=== PATIENT | female | born 1980 | race Caucasian/White ===

== ENCOUNTER → 2020-10-24 17:00 | Outpatient (CLI) | payer BC, SELFPAY ==
[2020-10-13 08:23] VITALS: BMI 41.9
--- NOTE | 2020-10-24 17:02 | US_ITS ---
STUDY: SUPERFICIAL ULTRASOUND - RIGHT THIGH REASON FOR EXAM: Female, 40 years old. mass, lipoma -- right distal femur mass TECHNIQUE: A superficial ultrasound was performed with real-time and static flores-scale imaging. COMPARISON: None. FINDINGS: Multiple longitudinal and transverse ultrasound images of the right thigh demonstrate a 2.7 x 5.1 cm oval isoechoic area within the subcutaneous fat which may represent a lipoma. Correlation with MRI with contrast would be useful. US/Ext Non Vasc Limited/Soft Tiss IMPRESSION: Possible lipoma of the distal right thigh and correlation with MRI with contrast may be useful. Electronically Signed: Sang Gomez MD at 9:20 EDT Tel , Service support ,
== END ==
PROVIDERS: Referring Provider Orthopaedic Surgery; Visit Provider Orthopaedic Surgery
DX: D17.23 Benign lipomatous neoplasm of skin and subcutaneous tissue of right leg (principal)
CPT/HCPCS: 76882

== ENCOUNTER → 2020-11-09 16:53 | Outpatient (CLI) | payer BC, SELFPAY ==
[2020-10-13 08:23] VITALS: BMI 41.9
--- NOTE | 2020-11-09 16:53 | MRI_ITS ---
STUDY: MRI LOWER EXTREMITY RIGHT THIGH WITH AND WITHOUT CONTRAST REASON FOR EXAM: Soft tissue mass of the right posterior distal thigh, lipoma. TECHNIQUE: Standardized fat and water weighted pulse sequences were obtained in all 3 orthogonal planes, post contrast administration. IV DOTAREM 20CC was administered for the contrast portion of the examination. COMPARISON: Ultrasound images 10/24/2020, radiographs of the right knee 10/13/2020. FINDINGS: There is a superficial nonencapsulated lipoma at the posterior lateral aspect of the distal thigh corresponding to the skin marker (T1 axial images 16-18; T1 sagittal image 6). There is no contrast enhancing soft tissue mass. Normal visualized quadriceps, adductor and hamstring muscles. Normal visualized quadriceps extensor mechanism with a normal rectus femoris, vastus medialis, intermedius and lateralis muscles. Normal visualized femur. MRI/Lower Ext No Joint W/WO Cont IMPRESSION: Superficial nonencapsulated lipoma at the posterior lateral aspect of the distal thigh. Electronically Signed: Yasir Padegtt MD at 7:54 EDT Tel , Service support ,
== END ==
PROVIDERS: Referring Provider Orthopaedic Surgery; Visit Provider Orthopaedic Surgery
DX: R22.41 Localized swelling, mass and lump, right lower limb (principal)
CPT/HCPCS: 73720; A9575

== ENCOUNTER → 2021-01-06 11:16 | Outpatient (CLI) | payer BC, SELFPAY ==
[2021-01-06 08:38] VITALS: BMI 41.9
--- NOTE | 2021-01-06 08:40 | LIP_PTH ---
PATIENT: RADHA MENDEZ LOC: [facility] U#:[id number] AGE/SX: 44/F ROOM: RE01/06/[address]: Dr. Mechelle Dobbins MD : 1980 BED: DIS: SPEC #: [id number] RECD: 01/06/21 10:57 STATUS: TAD REGuillermina #: [id number] LAUREN: 01/06/21 08:[address]: Mechelle Dobbins DEPT: SURGICAL PATHOLOGY RECD BY: Debra Hou ENTERED: 01/06/21 12:54 SP TYPE: LIPOMA OTHR DR: No Primary Care Phys Tissues: Soft tissues, NOS Procedures: Surgery Specimen Level III HEADER OPERATION: Excision of right knee lipoma posterior PRE-OP DIAGNOSIS: Right knee lipoma posterior TISSUE SUBMITTED: Right knee lipoma posterior MICROSCOPIC DIAGNOSIS Right knee lipoma posterior, excisional biopsy: Mature adipose tissue, consistent with lipoma. SJ:jazmine 01/09/2021 MICROSCOPIC DESCRIPTION Slides are reviewed. GROSS DESCRIPTION Received is one container labeled with the patient's name and not further designated. The specimen consists of a partly disrupted piece of yellow adipose tissue measuring 6 x 5 x 3 cm. Sections reveal yellow adipose cut surfaces without area of hemorrhage, necrosis or cystic degeneration. [employer] Saw Runner sections are submitted in three cassettes. / SJ:rg 01/06/21 TC:1 CPT: 47797
== END ==
PROVIDERS: Visit Provider Surgery
DX: D17.23 Benign lipomatous neoplasm of skin and subcutaneous tissue of right leg (principal)
CPT/HCPCS: 88304